=== PATIENT | male | born 2005 | race Caucasian/White ===

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

== ENCOUNTER 2024-10-01 00:21 | Emergency (ER) | payer BC, OTHER ==
[2024-10-01 00:26] VITALS: RESP 18; BMI 20.3
[2024-10-01 02:48] LABS: PH,URINE 6.5 (5.0-8.0); URINE APPEARANCE CLEAR; URINE BILIRUBIN NEGATIVE (NEGATIVE); URINE COLOR YELLOW; URINE GLUCOSE (UA) NEGATIVE (NEGATIVE); URINE KETONE NEGATIVE (NEGATIVE); URINE LEUK ESTERASE NEGATIVE (NEGATIVE); URINE NITRITE NEGATIVE (NEGATIVE); URINE PROTEIN NEGATIVE (NEGATIVE); URINE UROBILINOGEN 0.2 mg/dL (0.2-1.0)
[2024-10-01 02:49] LABS: BASO % 0.3 % (0-2.0); EOS % 0.2 % (0-4.5); HEMATOCRIT 45.5 % (35.4-49); HEMOGLOBIN 15.7 GM/dL (11.7-16.9); LYMPH % 22.2 % (8-40); MCHC 34.4 g/dl (32.0-35.9); MEAN PLT VOLUME 7.8 fl (7.5-11.1); MONO % 7.4 % (3.8-10.2); NEUT % 69.9 % (42.8-82.8); PLATELET COUNT 207 10^3/uL (134-434); RBC 5.05 M/mm3 (4.00-5.60); WHITE BLOOD COUNT 8.8 K/mm3 (4.0-10.0)
[2024-10-01 03:12] LABS: POTASSIUM 4.1 mmol/L (3.5-5.1)
[2024-10-01 03:14] LABS: ALBUMIN 4.3 g/dl (3.4-5.0); BLOOD UREA NITROGEN 19.2 mg/dL (7-18); CALCIUM 9.3 mg/dL (8.5-10.1)
[2024-10-01 03:18] LABS: CREATININE 0.9 mg/dL (0.55-1.3)
[2024-10-01 03:19] LABS: BILIRUBIN,TOTAL 0.7 mg/dL (0.2-1); TOT PROT 6.7 g/dl (6.4-8.2)
[2024-10-01 03:25] LABS: METHADONE, UR NEGATIVE (NEGATIVE); URINE BARBITURATES NEGATIVE (NEGATIVE); URINE BENZODIAZEPINES NEGATIVE (NEGATIVE)
[2024-10-01 03:26] LABS: OPIATES, URI NEGATIVE (NEGATIVE); PHENCYCLIDINE,URINE NEGATIVE (NEGATIVE)
[2024-10-01 03:28] LABS: COCAINE, UR NEGATIVE (NEGATIVE); URINE AMPHETAMINES POSITIVE (NEGATIVE)
[2024-10-01 03:40] VITALS: BP 118/94; PULSE 87; TEMP 97.9
== END 2024-10-01 03:55 | disposition home or self-care (01) ==
LOC: JER 00:21
DX: R07.9 Chest pain, unspecified (principal); F12.929 Cannabis use, unspecified with intoxication, unspecified; R00.2 Palpitations; F41.9 Anxiety disorder, unspecified; F43.9 Reaction to severe stress, unspecified
CPT/HCPCS: 36415; 71046-TC-FY; 80053; 80307; 81003; 84484; 85025; 87086; 93005; 93010; 99285-25